=== PATIENT | female | born 1990 | race Hispanic/Latino ===

== ENCOUNTER 2018-03-12 18:18 | Emergency (ER) | payer SELFPAY ==
[~2018-03-12] VITALS: Ht 177.8 cm; Wt 127.0 kg
--- NOTE | 2018-03-12 20:11 | Diagnostic Imaging Report ---
ANKLE 3+ VIEWS LEFT, FOOT LEFT COMPLETE - 3 views HISTORY: Pain. Swelling left ankle. COMPARISON: None available. FINDINGS: Bones: No acute displaced fracture. Osseous alignment is within normal limits. Calcaneal enthesophyte at the plantar fascial insertion and Achilles tendon insertion. Diffuse osteopenia especially around the tarsal bones. Joints: The joint spaces are well-maintained. Soft tissues: Diffuse soft tissue swelling around the left ankle IMPRESSION: 1. Diffuse soft tissue swelling around the left ankle. 2. Diffuse osteopenia of the left foot. Correlate for possible inflammatory arthritis. Signed by: Dr. Irwin Parra M.D. on 03/12/2018 8:08 PM
[2018-03-12 22:04] VITALS: BP 136/79
== END 2018-03-12 22:06 | disposition home or self-care (01) ==
LOC: ER 18:18
DX: S93.432A Sprain of tibiofibular ligament of left ankle, initial encounter (principal); X50.1XXA Overexertion from prolonged static or awkward postures, initial encounter; Y92.008 Other place in unspecified non-institutional (private) residence as the place of occurrence of the external cause
CPT/HCPCS: 99283

== ENCOUNTER 2019-05-02 16:58 | Emergency (ER) | payer SELFPAY ==
[~2019-05-02] VITALS: Ht 177.8 cm; Wt 127.0 kg
[2019-05-02 21:24] VITALS: BP 130/78
== END 2019-05-02 21:28 | disposition home or self-care (01) ==
LOC: ER 16:58
DX: L02.31 Cutaneous abscess of buttock (principal); E11.65 Type 2 diabetes mellitus with hyperglycemia
CPT/HCPCS: 36415; 82948; 99282

== ENCOUNTER 2021-04-11 13:59 | Emergency (ER) | payer SELFPAY ==
[~2021-04-11] VITALS: Ht 177.8 cm; Wt 127.0 kg
[2021-04-11] MEDS ORDERED: IBUPROFEN 600 MG TAB PO STA (14:29)
[2021-04-11] MEDS ORDERED: TETANUS/DIPHTHERIA TOX ADULT 0.5 ML SYR IM ONE (14:30)
[2021-04-11] MEDS ORDERED: LIDOCAINE 1% W/EPINEPHRINE 20 ML VIAL INJ ONE (14:30)
[2021-04-11] MEDS ORDERED: AMOXICILLIN/CLAVULANATE K 500 MG TAB PO ONE (14:45)
[2021-04-11] MEDS ORDERED: AUGMENTIN 500-1 EACH PO ×4 (15:22→15:42)
[2021-04-11] MEDS ORDERED: MOTRIN200 MG PO ×2 (15:25→15:39)
== END 2021-04-11 16:00 | disposition home or self-care (01) ==
LOC: ER 14:31
DX: S81.811A Laceration without foreign body, right lower leg, initial encounter (principal); W45.8XXA Other foreign body or object entering through skin, initial encounter; W22.8XXA Striking against or struck by other objects, initial encounter; Y92.008 Other place in unspecified non-institutional (private) residence as the place of occurrence of the external cause; E11.9 Type 2 diabetes mellitus without complications
CPT/HCPCS: 90471; 90714; 99284

== ENCOUNTER 2021-04-24 09:57 | Emergency (ER) | payer SELFPAY ==
[~2021-04-24] VITALS: Ht 177.8 cm; Wt 127.0 kg
[~2021-04-24 09:57] MED LIST: AUGMENTIN 500-1 EACH PO; MOTRIN200 MG PO
== END 2021-04-24 10:45 | disposition home or self-care (01) ==
LOC: ER 10:27
DX: L76.82 Other postprocedural complications of skin and subcutaneous tissue (principal); E11.9 Type 2 diabetes mellitus without complications
CPT/HCPCS: 99282

== ENCOUNTER → 2021-06-02 | Outpatient (CLI) | payer SELFPAY | LOC: WCC 12:53 | PROVIDERS: ATTEND Family Medicine Adult Medicine | DX: E11.628 Type 2 diabetes mellitus with other skin complications (principal); L03.115 Cellulitis of right lower limb; S81.802A Unspecified open wound, left lower leg, initial encounter; S81.801A Unspecified open wound, right lower leg, initial encounter; B96.89 Other specified bacterial agents as the cause of diseases classified elsewhere; R60.0 Localized edema; I10 Essential (primary) hypertension; E66.3 Overweight; W45.8XXA Other foreign body or object entering through skin, initial encounter | CPT/HCPCS: 87071; 87075; 87186; 87205 ==

== ENCOUNTER → 2021-06-09 | Outpatient (CLI) | payer SELFPAY | LOC: WCC 13:21 | PROVIDERS: ATTEND Family Medicine Adult Medicine | DX: E11.628 Type 2 diabetes mellitus with other skin complications (principal); L03.115 Cellulitis of right lower limb; S81.801A Unspecified open wound, right lower leg, initial encounter; S81.802A Unspecified open wound, left lower leg, initial encounter; R60.0 Localized edema; I10 Essential (primary) hypertension; B96.89 Other specified bacterial agents as the cause of diseases classified elsewhere; E66.3 Overweight; W45.8XXA Other foreign body or object entering through skin, initial encounter ==

== ENCOUNTER 2023-02-11 20:20 | Emergency (ER) | payer SELFPAY ==
[~2023-02-11] VITALS: Ht 177.8 cm; Wt 126.1 kg
[2023-02-11] MEDS ORDERED: ONDANSETRON HCL INJ 2MG/ML 2ML 2 MG/ML VIAL IV STA (20:46)
[2023-02-11] MEDS ORDERED: ONDANSETRON HCL INJ 2MG/ML 2ML 2 MG/ML VIAL ONE (20:47)
[2023-02-11] MEDS ORDERED: SODIUM CHLORIDE 0.9% 1000ML 1,000 ML IV ONE (21:00)
[2023-02-11] MEDS ORDERED: DICYCLOMINE HCL 20 MG/2 ML VIAL IM ONE (21:00)
[2023-02-11 21:18] LABS: BASOPHILS % 0.3 % (0.0-1.0); EOSINOPHILS % 0.3 % (0.0-6.0); HEMATOCRIT 45.4 % (34.2-44.1); HEMOGLOBIN 14.6 g/dL (12.0-16.0); LYMPHOCYTES # (AUTO) 1.2 (1.0-3.2); LYMPHOCYTES % 16.6 % (18.0-39.1); MEAN CORPUSCULAR HGB CONC 32.2 g/dL (31-35); MEAN CORPUSCULAR VOLUME 77.7 fL (81-99); MONOCYTES # (AUTO) 0.8 (0.2-0.8); MONOCYTES % 11.4 % (4.4-11.3); NEUTROPHILS # (AUTO) 5.1 (2.1-6.9); NEUTROPHILS % 70.7 % (38.7-80.0); PLATELET COUNT 321 x10e3/uL (140-360); RED BLOOD COUNT 5.84 x10e6/uL (3.6-5.1); RED CELL DISTRIBUTION WIDTH 15.6 % (11.7-14.4)
[2023-02-11 21:35] LABS: ALBUMIN 3.4 g/dL (3.5-5.0); ALBUMIN/GLOBULIN RATIO 0.7 (0.8-2.0); ANION GAP 16.6 mmol/L (8-16); CALCIUM 9.9 mg/dL (8.4-10.2); CREATININE, SERUM 0.9 mg/dL (0.57-1.11); POTASSIUM 3.6 mmol/L (3.5-5.1)
[2023-02-11 22:20] LABS: CLARITY,URINE CLOUDY (CLEAR); COLOR,URINE YELLOW (YELLOW); KETONES,URINE 1+ (NEGATIVE); LEUKOCYTE ESTERASE ,URINE 1+ (NEGATIVE); NITRITE,URINE NEGATIVE (NEGATIVE); PROTEIN,URINE DIPSTICK 1+ (NEGATIVE); URINE UROBILINOGEN 0.2 mg/dL (0.2 - 1)
[2023-02-11 22:32] LABS: BACTERIA,URINE MANY /HPF; EPITHELIAL CELLS,URINE MANY /LPF; MUCUS,URINE FEW (RARE); RBC,URINE 21-50 /HPF (0-5); TRICHOMONAS,URINE MANY; WBC,URINE (MAN) >50 /HPF (0-5)
[2023-02-11 22:33] LABS: TRANSITIONAL EPI CELLS,URINE FEW
[2023-02-12] MEDS ORDERED: DICYCLOMINE HCL20 MG PO (00:15)
[2023-02-12] MEDS ORDERED: PANTOPRAZOLE SO40 MG PO (00:15)
[2023-02-12] MEDS ORDERED: ONDANSETRON ODT4 MG PO (00:15)
[2023-02-12] MEDS ORDERED: METRONIDAZOLE500 MG PO (00:24)
[2023-02-12 00:33] VITALS: BP 103/85; PULSE 86; RESP 17; TEMP 98.9; O2SAT 100
== END 2023-02-12 00:36 | disposition home or self-care (01) ==
LOC: ER 20:27
DX: R10.13 Epigastric pain (principal); R11.2 Nausea with vomiting, unspecified; E11.65 Type 2 diabetes mellitus with hyperglycemia; I10 Essential (primary) hypertension
CPT/HCPCS: 36415; 74019; 76705; 80053; 81001; 81025; 83690; 85025; 99284; C9113; J0500; J2405; J7030

== ENCOUNTER 2023-06-28 13:04 | Emergency (ER) | payer SELFPAY ==
[~2023-06-28] VITALS: Ht 177.8 cm; Wt 123.8 kg
[~2023-06-28 13:04] MED LIST changes: +DICYCLOMINE HCL20 MG PO; +METRONIDAZOLE500 MG PO; +ONDANSETRON ODT4 MG PO; +PANTOPRAZOLE SO40 MG PO
[2023-06-28 13:15] VITALS: O2SAT 100
[2023-06-28] MEDS ORDERED: AMOX TR-K CLV1 EAC2 PO (13:26)
[2023-06-28] MEDS ORDERED: DOXYCYCLINE HY100 M3 PO (13:26)
[2023-06-28] MEDS ORDERED: NAPROXEN250 MG PO (13:27)
== END 2023-06-28 14:00 | disposition home or self-care (01) ==
LOC: ER 13:09
DX: L03.116 Cellulitis of left lower limb (principal); I10 Essential (primary) hypertension; E11.9 Type 2 diabetes mellitus without complications
CPT/HCPCS: 99283